=== PATIENT | male | born 1945 | race Two or more races ===

== ENCOUNTER 2018-10-26 07:42 | Day surgery (SDC) | payer MEDICARE, OTHER ==
[2018-10-26] MEDS ORDERED: LIDOCAINE HCL 1% 20 ML VIAL MC ONE (07:43)
[2018-10-26] MEDS ORDERED: IV LACTATED RINGERS SOLUTION 1,000 ML BAG IV ONE (07:43)
[2018-10-26] MEDS ORDERED: IRR STERIL WATER FOR IRR 1000 ML BOTTLE IR ONE (07:43)
[2018-10-26] MEDS ORDERED: PROPOFOL 200 MG/20 ML BOTTLE IV ONE (07:43)
[2018-10-26 08:30] LABS: BASOPHILS # (AUTO) 0.1 K/uL (0.0-8.0); EOSINOPHILS # (AUTO) 0.1 K/uL (0.0-0.7); EOSINOPHILS % (AUTO) 1.4 % (0.0-7.0); HEMOGLOBIN 15.6 g/dL (12.5-16.3); LYMPHOCYTES # (AUTO) 1.6 K/uL (20.0-40.0); LYMPHOCYTES % (AUTO) 25.6 % (20.5-51.5); MEAN CORPUSCULAR HEMOGLOBIN 33.5 uug (23.8-33.4); MEAN CORPUSCULAR HGB CONC 35 g/dL (32.5-36.3); MEAN CORPUSCULAR VOLUME 96.4 fL (73.0-96.2); MONOCYTES # (AUTO) 0.4 K/uL (2.0-10.0); MONOCYTES % (AUTO) 7.2 % (0.0-11.0); NEUTROPHILS % (AUTO) 64.8 % (38.5-71.5); PLATELET COUNT (AUTO) 189 K/uL (152-348); RED BLOOD CELL COUNT(AUTO) 4.67 MIL/uL (4.06-5.63); WHITE BLOOD COUNT (AUTO) 6.2 K/uL (3.6-10.2)
[2018-10-26 08:35] LABS: *BILIRUBIN,URIN 1+ (NEGATIVE); *BLOOD, URINE 2+ (NEGATIVE); *CLARITY,URINE CLEAR (CLEAR); *KETONES,URINE 1+ (NEGATIVE); *UROBILINOGEN,URINE 0.2 E.U./dl (NORMAL); LEUKOCYTE ESTERASE ,URINE NEGATIVE (NEGATIVE); NITRITE, URINE NEGATIVE (NEGATIVE); UGLUCOSE NEGATIVE (NEGATIVE)
[2018-10-26 08:40] LABS: *COLOR,URINE DARK YELLOW (YELLOW)
[2018-10-26 08:43] LABS: ALANINE AMINOTRANSFERASE 22 U/L (16-63); ALKALINE PHOSPHATASE 56 U/L (50-136); ASPARTATE AMINOTRANSFERASE 34 U/L (15-37); BACTERIA,URINE NONE SEEN /HPF (NONE SEEN); BILIRUBIN,TOTAL 0.8 mg/dL (0.2-1.0); CARBON DIOXIDE 29 mmol/L (21-32); CHLORIDE 103 mmol/L (98-107); CREATININE 0.8 mg/dL (0.6-1.3); GLUCOSE 105 mg/dL (74-106); SQUAMOUS EPITHELIAL CELL,UR FEW /HPF (NONE SEEN); UREA NITROGEN, BLOOD 18 mg/dL (7-18)
[2018-10-26 08:44] LABS: MUCUS,URINE MANY /LPF (0-FEW)
[2018-10-26] MEDS ORDERED: FENTANYL CITRATE 100 MCG/2 ML AMPUL ONE (09:41)
== END 2018-10-26 11:17 | disposition home or self-care (01) ==
LOC: DS 07:42
PROVIDERS: ATTEND Surgery
DX: Z12.11 Encounter for screening for malignant neoplasm of colon (principal); K62.0 Anal polyp; Z79.899 Other long term (current) drug therapy; Z87.891 Personal history of nicotine dependence; Z79.01 Long term (current) use of anticoagulants; E78.00 Pure hypercholesterolemia, unspecified
CPT/HCPCS: 36415; 45380; 80053; 81001; 85025; 85730; J3010; J3490; J7120 ×2; A4217; A4663

== ENCOUNTER 2019-03-31 06:24 | Day surgery (SDC) | payer MEDICARE, OTHER ==
[2019-03-31] MEDS ORDERED: LIDOCAINE-MPF 2% 5 ML VIAL MC ONE (08:46)
[2019-03-31] MEDS ORDERED: PROPOFOL 200 MG/20 ML BOTTLE IV ONE (08:46)
== END 2019-03-31 09:46 | disposition home or self-care (01) ==
LOC: DS 06:24
PROVIDERS: ATTEND Surgery
DX: Z09 Encounter for follow-up examination after completed treatment for conditions other than malignant neoplasm (principal); F17.210 Nicotine dependence, cigarettes, uncomplicated; E78.00 Pure hypercholesterolemia, unspecified; Z86.010 Personal history of colon polyps; K64.8 Other hemorrhoids
CPT/HCPCS: 45378; J3490; J7120; A4217; A4663